=== PATIENT | male | born 1970 | race Caucasian/White ===

== ENCOUNTER → 2016-10-15 | Outpatient (CLI) | payer OTHER ==
[~2016-10-15] MED LIST: CELEXA10 MG PO; COREG3.125 MG PO; LISINOPRIL10 MG PO; MAG-OX 400400 MG PO; MAGNESIUM OXIDE PO; MULTIPLE VITAMI1 CAP PO; VICODIN 5/500 505 MG PO; ZANTAC 150150 MG PO
[2016-10-15 15:29] LABS: BASO % 0.5 % (0.0-1.0); EOS # 0.4 10*3/uL (0.0-0.4); EOS % 5.2 % (1.0-4.0); HEMATOCRIT 43.3 % (42.0-52.0); HEMOGLOBIN 14.8 g/dl (14.0-18.0); LYMPH # 1.5 10*3/uL (1.3-4.4); MEAN CELL VOLUME 91.5 fl (80.0-94.0); MEAN CORPUSCULAR HGB 31.3 pg (27.0-31.0); MEAN CORPUSCULAR HGB CONC 34.2 g/dl (33.0-37.0); MEAN PLATELET VOLUME 11.6 fl (9.6-12.3); MONO # 0.8 10*3/uL (0.1-1.0); MONO % 10.4 % (3.0-9.0); NEUT # 4.6 10*3/uL (2.3-7.9); NEUT % 62.5 % (47.0-73.0); PLATELET COUNT AUTOMATED 177 10*3/uL (130-400); RED BLOOD COUNT 4.73 10*6/uL (4.50-5.90); RED CELL DISTRI WIDTH 12.6 % (0-14.5); WHITE BLOOD COUNT 7.3 10*3/uL (4.8-10.8)
[2016-10-15 15:59] LABS: BUN 16 mg/dl (7-24); CARBON DIOXIDE 25 mmol/L (21-32); CHLORIDE 107 mmol/L (98-107); CHOLESTEROL 159 mg/dL (<200); EST GLOM FILT AFRICAN AMERICAN > 60 ml/min; GLUCOSE 95 mg/dL (65-99); HDL CHOLESTEROL 49 mg/dl (40-60); LDL CHOLESTEROL 74 mg/dL (9-159); POTASSIUM 4.3 mmol/L (3.5-5.1); SODIUM 139 mmol/L (136-145); TRIGLYCERIDES 180 mg/dl (<150); VLDL CHOLESTEROL 36 mg/dL (6-40)
== END | disposition home or self-care (01) ==
LOC: LAB 14:12
PROVIDERS: Family Medicine
DX: I10 Essential (primary) hypertension (principal)

== ENCOUNTER → 2016-11-15 | Outpatient (CLI) | payer OTHER | END | disposition home or self-care (01) | LOC: LAB 11:26 | DX: R19.5 Other fecal abnormalities (principal) ==

== ENCOUNTER 2018-03-01 15:35 | Inpatient (IN) | payer OTHER ==
[~2018-03-01] VITALS: Ht 182.9 cm; Wt 106.6 kg
[2018-03-01] VITALS (10 sets, daily range): BP systolic 116–130; BP diastolic 61–80
--- NOTE | ~2018-03-01 | O ---
[place], [place] OPERATIVE NOTE NAME: CHERRY DRAKE UNIT #: [id number] ROOM: [facility]- DOCTOR: HOA MELÉNDEZ MD BIRTHDATE: [birth year] DOS: 03/02/2018 INDICATIONS: The patient has presented with profound anemia, hemoglobin of 6, hematocrit 21. The patient is telling me he is not on any blood thinners. He has been on aspirin, according to the until last month. He is on the other hand on esomeprazole. He is complaining of noticing blood in his stool. Status post 3 unit packed cell transfusion. PROCEDURE: Today's procedure part of investigation is colonoscopy and panendoscopy. PREMEDICATION: Propofol. SCOPE: Olympus forward-viewing gastroscope Q10 video. REPORT: After putting the patient in left lateral position and application of lubricant to the scope, the scope was introduced. Thereafter, under direct visualization, advanced through the length of esophagus without difficulty. Gastric pouch was entered. A few spots consistent with gastritis and gastric erosions, which appears to be secondary to aspirin insult was identified. Biopsies obtained. Photographic series obtained. Duodenal bulb, second and third part all inspected carefully. There was no angiodysplasia. There is no gross bleeding. Air was suctioned out after biopsy of the superficial erosions. The patient extubated, tolerated the procedure well. IMPRESSION: Gastritis, gastric erosion. PLAN: Continuation of Protonix 40 mg 1 every day. Furthermore, we are going to proceed with colonoscopy. PROCEDURE #2 INDICATIONS: The patient has presented with blood in the stool, undergone investigation. PROCEDURE: Today's procedure part of investigation is colonoscopy plus biopsy and photographic series. PREMEDICATION: Propofol. SCOPE: Olympus folding colonoscope 10L video. REPORT: After putting the patient in left lateral position and application of lubricant to the scope, the scope was introduced. Thereafter, under direct visualization, advanced through the length of colon without difficulty. Base of the cecum explored multiple superficial ulcerations at the base of cecum was photographed, biopsied and scope was withdrawn from ascending, transverse, descending colon, which is without any to the pathology of concern, removed to the level of rectum. GI reflection of the scope was performed, mild hemorrhoids was noticed, slightly agitated, this could be post colonic prep agitation; [place], [place] OPERATIVE NOTE NAME: CHERRY DRAKE UNIT #: [id number] ROOM: [facility]- DOCTOR: MEDHAT ECHEVERRIA,HOA BIRTHDATE: [birth year] however, 1+ hemorrhoids was documented. Air was suctioned out. The patient diverticulum was photographed, tolerated the procedure well. IMPRESSION: Cecal ulcers, superficial, status post multiple biopsy, diverticulosis, rare at sigmoid level, and small hemorrhoids. PLAN AND DISCUSSION: Anucort-HC suppository, this patient may need a capsule endoscopy to rule out no other source of pathology in the small bowel and clinical reassessment. This is going to be organized as outpatient. HOA MELÉNDEZ MD CM:OPRECORD:OPERATIVE NOTE [id number] 1622 HOA MELÉNDEZ MD 03/02/18 1619 interface
--- NOTE | ~2018-03-01 | EKG ---
[place], [place] ELECTROCARDIOGRAM REPORT NAME: GIL DRAKE UNIT #: [id number] ROOM: [facility] DOCTOR: SILVESTRE DRAFT REPORT BIRTHDATE: [birth year] [facility] Test Date: 2018-03-01 Test Time: 16:14:17 Pat Name: GIL DRAKE Department: Room: [facility] Gender: M Steam Roller Operator: : 1970 Requested By: JERRY MENDOSA PA-C Order Number: [id number] Reading MD: Gil Sosa MD Measurements Intervals Innis Rate: 61 P: 56 KS: 250 QRS: 31 QRSD: 103 T: -47 QT: 693 QTc: 699 Interpretive Statements Sinus rhythm Frequent PVCs Prolonged KS interval Inferior infarct, age indeterminate No previous ECG available for comparison Electronically Signed On 03-01-2018 18:39:35 PST by Gil Sosa MD CM:EKGRPT:ELECTROCARDIOGRAM REPORT 1614 1839 JERRY MENDOSA PA-C EPIPHANY DRAFT REPORT JERRY MENDOSA PA-C
--- NOTE | ~2018-03-01 | PROC NOTE ---
[place], [place] PROCEDURE NOTE NAME: CHERRY DRAKE UNIT #: [id number] ROOM: 406 DOCTOR: GLENROY DIAL MD BIRTHDATE: [birth year] DOS: 03/05/2018 PREOPERATIVE DIAGNOSIS: Bleeding internal hemorrhoids. POSTOPERATIVE DIAGNOSIS: Bleeding internal hemorrhoids (grade 2). PROCEDURE: Doppler guided hemorrhoidal artery ligation. SURGEON: Glenroy Dial MD HOME SERVICE DIRECTOR: LANDEN. ANESTHESIA: LMA. INDICATIONS: This is a 48-year-old gentleman with a history of bleeding internal hemorrhoids and anemia who is here for the above-mentioned procedure. The procedure and its complications were explained to the patient in detail preoperatively. Complications that were discussed included but were not limited to, bleeding, recurrence, prolonged pain, and damage to lying vital structures. He agreed to proceed. DESCRIPTION OF PROCEDURE: After identifying the patient, the patient was brought to the operating suite and laid in the supine position. After induction of general anesthesia, he was placed in the lithotomy position and in head down in a Trendelenburg fashion as well and the parts were painted and draped in the usual sterile fashion. This was done after a time-out procedure was called and IV sedation was administered and the patient was intubated. A digital rectal exam was performed, which was within normal limits. There was no bleeding that could be encountered on the examining finger. Serial ligation was performed of the hemorrhoidal arteries with the help of a Doppler probe at 7, 9, 11, 1, 3, and 5 o'clock positions with the help of 0 Vicryl in an interrupted fashion. Thereafter, a rectal exam was performed again and there was no evidence of any thrombosed internal hemorrhoids. Local anesthesia was infiltrated in the perianal fashion and the patient was placed back in a supine position. He was extubated uneventfully and brought back to the recovery room in stable fashion. There were no complications. Dr. Glenroy Dial, the attending surgeon, was present throughout the operating case. [place], [place] PROCEDURE NOTE NAME: CHERRY DRAKE UNIT #: [id number] ROOM: 406 DOCTOR: GLENROY DIAL MD BIRTHDATE: [birth year] Glenroy Dial MD CM:LM:PROCEDURE NOTE 1203 1219 GLENROY DIAL MD
--- NOTE | ~2018-03-01 | CON ---
[place], [place] REPORT OF CONSULTATION NAME: CHERRY DRAKE UNIT #: [id number] ROOM: [facility] DOCTOR: HOA MELÉNDEZ MD BIRTHDATE: [birth year] DOS: GASGTROENDOSCOPIC REPORT: HISTORY OF PRESENT ILLNESS: This is a 48-year-old patient who was presented with chief complaint of GI bleed and profound anemia of H and H of 6 and 21, status post 3 units packed transfusion. Chest x-ray was unremarkable. Blood work was GFR greater than 60. Chemistry normal. Magnesium normal. Lipase normal. INR 1.1. CT scan of the abdomen and pelvis has been done, no acute process. Account for the patient bleeding. Colonoscopy was recommended that is organized. CT scan of the head was unremarkable. Troponin was negative. PAST MEDICAL HISTORY: Associated with hypertension, syncope, gastroesophageal reflux, GI bleed, depression. PAST SURGICAL HISTORY: Cardiac catheterization, appendectomy, cervical spine surgery. SOCIAL HISTORY: Nonsmoker, nonalcohol consumer. FAMILY HISTORY: Noncontributory. ALLERGIES: No known medications. MEDICATIONS: Medication list has been reviewed. He has stopped intake of aspirin a month ago according to the . Otherwise, he is on omeprazole and ranitidine. REVIEW OF SYSTEMS: HEENT: Denies double vision, blurred vision. RESPIRATORY: Denies acute shortness of breath. CARDIOVASCULAR: Denies acute chest pain. DIGESTIVE SYSTEM: No hematemesis; however, blood in the stool. PHYSICAL EXAMINATION: VITAL SIGNS: Stable. HEENT: Within normal limit. NECK: Supple, no thyromegaly. CHEST: Symmetric anatomy, equal expansion. HEART: Normal sinus rhythm, no gallop, no murmur. ABDOMEN: Soft. No hepato-organomegaly. Bowel sounds present. No pulsatile mass. EXTREMITIES: No cyanosis, no pedal edema. NEUROLOGIC: Alert, oriented to time, place, person. IMPRESSION: Gastrointestinal bleed, source unknown profound anemia, status post transfusion. PLAN AND DISCUSSION: EGD and colonoscopy today. [place], [place] REPORT OF CONSULTATION NAME: CHERRY DRAKE UNIT #: [id number] ROOM: [facility] DOCTOR: HOA MELÉNDEZ MD BIRTHDATE: [birth year] HOA MELÉNDEZ MD CM:CONSTR:REPORT OF CONSULTATION 1541 03/03/18 0520 interface
--- NOTE | 2018-03-01 16:10 | NUR ---
PT PROVIDED WITH URINAL AND IS AWARE WE NEED URINE SAMPLE
--- NOTE | 2018-03-01 16:26 | NUR ---
PT SIGNED CONSCENT FOR BLOOD TRANSFUSION IF NEEDED
[2018-03-01 16:39] LABS: BASO % 0.7 % (0.0-1.0); EOS # 0.2 10*3/uL (0.0-0.4); EOS % 3.9 % (1.0-4.0); HEMATOCRIT 21.7 % (42.0-52.0); HEMOGLOBIN 6.1 g/dl (14.0-18.0); LYMPH # 1.3 10*3/uL (1.3-4.4); LYMPH % 21.7 % (27.0-41.0); MEAN CELL VOLUME 87.1 fl (80.0-94.0); MEAN CORPUSCULAR HGB 24.5 pg (27.0-31.0); MEAN CORPUSCULAR HGB CONC 28.1 g/dl (33.0-37.0); MEAN PLATELET VOLUME 10.6 fl (9.6-12.3); MONO # 0.6 10*3/uL (0.1-1.0); MONO % 10.7 % (3.0-9.0); NEUT # 3.7 10*3/uL (2.3-7.9); NEUT % 62.3 % (47.0-73.0); NUCLEATED RED BLOOD CELL 0.3 % (0.0-0.0); PLATELET COUNT AUTOMATED 246 10*3/uL (130-400); RED BLOOD COUNT 2.49 10*6/uL (4.50-5.90); RED CELL DISTRI WIDTH 20.4 % (0-14.5); WHITE BLOOD COUNT 5.9 10*3/uL (4.8-10.8)
[2018-03-01 16:49] LABS: ACT PARTIAL THROMBO TIME 23.5 SECONDS (20.8-31.5); INTERNATIONAL NORM RATIO 1.1 (2.0-3.5)
[2018-03-01 16:57] LABS: ALBUMIN 3.3 gm/dl (3.1-4.5); ALKALINE PHOSPHATASE 60 U/L (45-117); BUN 16 mg/dl (7-24); CHLORIDE 106 mmol/L (98-107); LIPASE 92 U/L (73-393); POTASSIUM 4.5 mmol/L (3.5-5.1); SGOT/AST 21 IU/L (3-35); SGPT/ALT 30 U/L (12-78); SODIUM 139 mmol/L (136-145); TOTAL PROTEIN 6.4 gm/dL (6.4-8.2)
[2018-03-01 17:00] LABS: TROPONIN I < 0.015 ng/ml (<0.045)
[2018-03-01 17:14] LABS: BILIRUBIN NEGATIVE (NEGATIVE); BLOOD NEGATIVE (NEGATIVE); CLARITY CLEAR (CLEAR); COLOR YELLOW (YELLOW); GLUCOSE NEGATIVE (NEGATIVE); KETONE NEGATIVE (NEGATIVE); LEUKO ESTERASE NEGATIVE (NEGATIVE); NITRITE NEGATIVE (NEGATIVE); PH 5.5 (5.0-9.0); UROBILINOGEN 0.2 E.U./dl (0.2-1.0)
[2018-03-01 17:25] LABS: RBC 0-2 rbc/hpf (0-2); WBC 0-2 wbc/hpf (0-5)
--- NOTE | 2018-03-01 18:23 | NUR ---
PT DENIES ANY PAIN DENEIS ANY SOB VITALS WNL WILL MONITOR
--- NOTE | 2018-03-01 18:40 | NUR ---
A 48, admitted to ICCU, under the services of FRITZ Rice DO with a diagnosis of GI BLEED ANEMIA SYNCOPY. Chief complaint is PASSED OUT. Patient arrived via ambulance from ER. Monitor applied. Initial assessment completed. Vital signs taken and recorded. FRITZ RICE DO notified of admission to the unit. Orders received. See assessment for past medical history, medications and allergies. Patient and/or family oriented to unit. [facility] visitation policy reviewed. Clothing/patient valuable form completed. OZZY LAIRD
[2018-03-01] MEDS ORDERED: LAMICTAL100 MG PO (18:52)
[2018-03-01] MEDS ORDERED: PRILOSEC20 M1 PO (18:53)
[2018-03-01] MEDS ORDERED: PROZAC20 MG PO (18:53)
[2018-03-01] MEDS ORDERED: BISOPROLOL FM5 MG PO (18:54)
[2018-03-01] MEDS ORDERED: ZANTAC 150150 MG PO (18:55)
--- NOTE | 2018-03-01 21:06 | NUR ---
PATIENT STATED HE WAS TAKING AN ASPIRIN DAILY, BUT STOPPED TAKING OVER A MONTH AGO.
[2018-03-02] VITALS (11 sets, daily range): BP systolic 88–142; BP diastolic 40–76
[2018-03-02 06:07] LABS: ALBUMIN 3.2 gm/dl (3.1-4.5); BUN 13 mg/dl (7-24); CHLORIDE 107 mmol/L (98-107); CREATININE 0.89 mg/dL (0.70-1.30); PHOSPHOROUS 3.6 mg/dL (2.5-4.9); POTASSIUM 4.4 mmol/L (3.5-5.1); SGOT/AST 23 IU/L (3-35); SGPT/ALT 31 U/L (12-78); SODIUM 138 mmol/L (136-145)
[2018-03-02 06:14] LABS: ALKALINE PHOSPHATASE 60 U/L (45-117); FREE T4 0.78 ng/dl (0.76-1.46); TOTAL PROTEIN 6.2 gm/dL (6.4-8.2)
[2018-03-02 06:26] LABS: BASO % 0.7 % (0.0-1.0); EOS # 0.3 10*3/uL (0.0-0.4); LYMPH # 1.1 10*3/uL (1.3-4.4); LYMPH % 19.6 % (27.0-41.0); MEAN CELL VOLUME 87.3 fl (80.0-94.0); MEAN CORPUSCULAR HGB 25.7 pg (27.0-31.0); MEAN CORPUSCULAR HGB CONC 29.5 g/dl (33.0-37.0); MEAN PLATELET VOLUME 10.3 fl (9.6-12.3); MONO # 0.5 10*3/uL (0.1-1.0); MONO % 10.1 % (3.0-9.0); NEUT # 3.4 10*3/uL (2.3-7.9); PLATELET COUNT AUTOMATED 199 10*3/uL (130-400); RED BLOOD COUNT 3.46 10*6/uL (4.50-5.90); RED CELL DISTRI WIDTH 17.8 % (0-14.5); WHITE BLOOD COUNT 5.4 10*3/uL (4.8-10.8)
[2018-03-02 06:31] LABS: HEMOGLOBIN 8.9 g/dl (14.0-18.0)
[2018-03-02 06:32] LABS: HEMATOCRIT 30.2 % (42.0-52.0)
[2018-03-02 06:33] LABS: ACT PARTIAL THROMBO TIME 23.3 SECONDS (20.8-31.5); INTERNATIONAL NORM RATIO 1.1 (2.0-3.5)
--- NOTE | 2018-03-02 09:00 | NUR ---
Courseware Developer in to see patient. Dr. Trejo is currently in the room. Will follow up at a later time.
[2018-03-02 09:36] LABS: VITAMIN D, 25-HYDROXY 27.8 ng/mL (30-100)
--- NOTE | 2018-03-02 11:06 | NUR ---
Angle Furnaceman in to see patient. He is resting with his eyes closed. Resps even and unlabored. Will follow up at a late time.
--- NOTE | 2018-03-02 14:20 | NUR ---
Trim Operator in to see patient. He is currently being taken to surgery. Will follow up at a later time.
--- NOTE | 2018-03-02 14:23 | NUR ---
TAKEN TO OR VIA BED.
--- NOTE | 2018-03-02 16:48 | NUR ---
RETURNED FROM OR VIA BED VERY STABLE. REPORT RECIEVED FROM DORIS.
[2018-03-02 17:08] LABS: BASO % 0.4 % (0.0-1.0); EOS # 0.2 10*3/uL (0.0-0.4); EOS % 4.7 % (1.0-4.0); HEMATOCRIT 30.4 % (42.0-52.0); HEMOGLOBIN 9.1 g/dl (14.0-18.0); LYMPH # 0.9 10*3/uL (1.3-4.4); LYMPH % 19.1 % (27.0-41.0); MEAN CELL VOLUME 87.1 fl (80.0-94.0); MEAN CORPUSCULAR HGB 26.1 pg (27.0-31.0); MEAN CORPUSCULAR HGB CONC 29.9 g/dl (33.0-37.0); MEAN PLATELET VOLUME 10.3 fl (9.6-12.3); MONO # 0.5 10*3/uL (0.1-1.0); MONO % 9.3 % (3.0-9.0); NEUT # 3.3 10*3/uL (2.3-7.9); NEUT % 66.1 % (47.0-73.0); PLATELET COUNT AUTOMATED 202 10*3/uL (130-400); RED BLOOD COUNT 3.49 10*6/uL (4.50-5.90); RED CELL DISTRI WIDTH 18.1 % (0-14.5); WHITE BLOOD COUNT 4.9 10*3/uL (4.8-10.8)
--- NOTE | 2018-03-02 19:30 | NUR ---
PATIENT AND HAD MANY QUESTIONS CONCERNING TREATMENT. I EXPLAINED TO THEM WHAT DR. MELÉNDEZ'S NOTE SAID, THE MEDICATIONS HE WAS GETTING. THEY WERENT HAPPY WITH THAT, STATED "IS THIS SAME THING GONNA HAPPEN AGAIN NEXT YEAR?" "WHAT ARE THEY DOING TO KEEP THIS FROM HAPPENING?"THEN THEY WANTED TO SPEAK WITH AN INHOUSE DOCTOR. I CALLED AND SPOKE WITH DR. CHAN, AND DR. PINTO CAME UP TO SPEAK WITH THEM.
[2018-03-03] VITALS: BP 112/70
[2018-03-03 04:00] VITALS: BP 114/72
[2018-03-03 07:09] LABS: BASO % 0.6 % (0.0-1.0); EOS # 0.3 10*3/uL (0.0-0.4); HEMATOCRIT 30.4 % (42.0-52.0); HEMOGLOBIN 8.7 g/dl (14.0-18.0); LYMPH % 20.5 % (27.0-41.0); MEAN CELL VOLUME 87.9 fl (80.0-94.0); MEAN CORPUSCULAR HGB 25.1 pg (27.0-31.0); MEAN CORPUSCULAR HGB CONC 28.6 g/dl (33.0-37.0); MEAN PLATELET VOLUME 10.9 fl (9.6-12.3); MONO # 0.6 10*3/uL (0.1-1.0); NEUT # 3.1 10*3/uL (2.3-7.9); NEUT % 61.5 % (47.0-73.0); PLATELET COUNT AUTOMATED 194 10*3/uL (130-400); RED BLOOD COUNT 3.46 10*6/uL (4.50-5.90); RED CELL DISTRI WIDTH 18.2 % (0-14.5)
[2018-03-03 07:41] LABS: ALBUMIN 2.9 gm/dl (3.1-4.5); ALKALINE PHOSPHATASE 59 U/L (45-117); BUN 9 mg/dl (7-24); CHLORIDE 112 mmol/L (98-107); CREATININE 0.89 mg/dL (0.70-1.30); PHOSPHOROUS 3.1 mg/dL (2.5-4.9); POTASSIUM 4.8 mmol/L (3.5-5.1); SGOT/AST 15 IU/L (3-35); SGPT/ALT 28 U/L (12-78); SODIUM 140 mmol/L (136-145); TOTAL PROTEIN 5.9 gm/dL (6.4-8.2)
[2018-03-03 08:00] VITALS: BP 112/78
--- NOTE | 2018-03-03 08:36 | NUR ---
DR CABELLO IN TO SEE PT.
--- NOTE | 2018-03-03 09:40 | NUR ---
DR SIMS IN TO SEE PT. UPDATED HIM ON PT'S CONDITION AND PLAN OF CARE. NEW ORDERS RECEIVED.
--- NOTE | 2018-03-03 11:02 | NUR ---
ANUSOL SUPPOSITORY GIVEN PER PRN ORDER.
[2018-03-03 12:00] VITALS: BP 115/57
--- NOTE | 2018-03-03 13:31 | NUR ---
PT RESTING. RESP EASY. NO ACUTE DISTRESS NOTED A TTHIS TIME. WILL CONTINUE TO MONITOR PT.
--- NOTE | 2018-03-03 14:08 | NUR ---
PT TRANSFERED TO [facility]. [facility] GAIT [facility]AD[facility]. PT DENIES C/O DIZZINESS OR LIGHTHEADEDNESS.
--- NOTE | 2018-03-03 15:30 | NUR ---
ASSUMED CARE OF PATIENT. PT RESTING IN BED. NO COMPLAINTS OR NEEDS AT THIS TIME. CALL LIGHT IN REACH.
[2018-03-03 16:00] VITALS: BP 109/95
[2018-03-03 20:00] VITALS: BP 127/79
--- NOTE | 2018-03-03 20:00 | NUR ---
AAOX3 RESTING IN BED. SKIN WARM & DRY. HEP LOCK INTACT TO LEFT ANTECUBITAL; SITE ASYMPTOMATIC. PULSE OX 98% ON ROOM AIR. PT. VOICES NO C/O AT THIS TIME. CALL LIGHT WITHIN REACH.
[2018-03-04] VITALS: BP 137/69
[2018-03-04 05:58] LABS: BASO % 0.7 % (0.0-1.0); EOS # 0.3 10*3/uL (0.0-0.4); EOS % 5.4 % (1.0-4.0); HEMATOCRIT 31.9 % (42.0-52.0); HEMOGLOBIN 9.4 g/dl (14.0-18.0); LYMPH # 1.3 10*3/uL (1.3-4.4); MEAN CELL VOLUME 88.1 fl (80.0-94.0); MEAN CORPUSCULAR HGB CONC 29.5 g/dl (33.0-37.0); MEAN PLATELET VOLUME 10.7 fl (9.6-12.3); MONO # 0.8 10*3/uL (0.1-1.0); MONO % 14.1 % (3.0-9.0); NEUT % 55.4 % (47.0-73.0); PLATELET COUNT AUTOMATED 217 10*3/uL (130-400); RED BLOOD COUNT 3.62 10*6/uL (4.50-5.90); RED CELL DISTRI WIDTH 17.7 % (0-14.5); WHITE BLOOD COUNT 5.4 10*3/uL (4.8-10.8)
--- NOTE | 2018-03-04 06:00 | NUR ---
AROUSES EASILY UPON ENTERING ROOM. MEDICATION GIVEN PER EMAR. PT. VOICES NO C/O AT THIS TIME. CALL LIGHT WITHIN REACH.
[2018-03-04 06:30] LABS: BUN 11 mg/dl (7-24); CHLORIDE 107 mmol/L (98-107); CREATININE 1.03 mg/dL (0.70-1.30); POTASSIUM 4.4 mmol/L (3.5-5.1); SODIUM 140 mmol/L (136-145)
--- NOTE | 2018-03-04 06:50 | NUR ---
NOTIFIED DR. SNYDER OF PT. HAVING PVC'S.
--- NOTE | 2018-03-04 07:15 | NUR ---
IN TO SEE PATIENT.
[2018-03-04 08:00] VITALS: BP 110/78
--- NOTE | 2018-03-04 08:00 | NUR ---
PATIENT RESTING QUIETLY IN BED. RESPIRATIONS EASY, REGULAR ON RA. DENIES ANY SOB. DENIES ANY PAIN/DISCOMFORT AT THIS TIME. WILL CONTINUE TO MONITOR. CALL LIGHT WITHIN REACH. SEE SHIFT ASSESSMENT. VSS.
[2018-03-04 12:00] VITALS: BP 118/69; BP 148/66
[2018-03-04 16:00] VITALS: BP 120/56
--- NOTE | 2018-03-04 17:01 | NUR ---
Patient resting quietly with no c/o discomfort. Respirations easy and regular. Vital signs stable. No overt distress. EUGENIA THOMSON
--- NOTE | 2018-03-04 17:20 | NUR ---
PHYSICAL THERAPY PATIENT SEEN IN ROOM BY PT OR SCREEN AND FOUND TO BE UP AD KARON WITH NO AD IN ROOM WITH GOOD SAFETY AND NO PT NEEDS INDICATED. THANK YOU FOR REFERRAL SIOBHAN SORIANO PT
--- NOTE | 2018-03-04 19:00 | NUR ---
PT SITTING UP IN BED WATCHING TV DURING BEDSIDE SHIFT REPORT. NO C/O VOICED. CALL LIGHT IN REACH.
[2018-03-04 20:00] VITALS: BP 129/66
[2018-03-05] VITALS (13 sets, daily range): BP systolic 93–121; BP diastolic 48–79
--- NOTE | 2018-03-05 02:05 | NUR ---
24 HR chart check completed.
--- NOTE | 2018-03-05 02:16 | NUR ---
Patient sleeping. Respirations relaxed and easy. Siderails up . Wheeljillians on. MAURICE STILES
[2018-03-05 06:41] LABS: BASO % 0.7 % (0.0-1.0); EOS # 0.3 10*3/uL (0.0-0.4); EOS % 5.4 % (1.0-4.0); HEMATOCRIT 33.2 % (42.0-52.0); HEMOGLOBIN 9.7 g/dl (14.0-18.0); LYMPH # 1.4 10*3/uL (1.3-4.4); LYMPH % 24.9 % (27.0-41.0); MEAN CELL VOLUME 87.8 fl (80.0-94.0); MEAN CORPUSCULAR HGB 25.7 pg (27.0-31.0); MEAN CORPUSCULAR HGB CONC 29.2 g/dl (33.0-37.0); MEAN PLATELET VOLUME 11.3 fl (9.6-12.3); MONO # 0.7 10*3/uL (0.1-1.0); MONO % 11.4 % (3.0-9.0); NEUT # 3.3 10*3/uL (2.3-7.9); NEUT % 57.2 % (47.0-73.0); PLATELET COUNT AUTOMATED 224 10*3/uL (130-400); RED BLOOD COUNT 3.78 10*6/uL (4.50-5.90); RED CELL DISTRI WIDTH 17.3 % (0-14.5); WHITE BLOOD COUNT 5.7 10*3/uL (4.8-10.8)
[2018-03-05 07:01] LABS: BUN 12 mg/dl (7-24); CHLORIDE 107 mmol/L (98-107); CREATININE 1.06 mg/dL (0.70-1.30); SODIUM 139 mmol/L (136-145)
--- NOTE | 2018-03-05 10:40 | NUR ---
Tile Roofer in to see patient. He is currently not in his room. Will follow up at a later time.
--- NOTE | 2018-03-05 10:53 | NUR ---
PT OFF FLOOR TO SURGERY.
--- NOTE | 2018-03-05 12:41 | NUR ---
Hadoop Architect in to see patient. He is currently no in his room. Will follow up at a later time.
--- NOTE | 2018-03-05 14:20 | NUR ---
PT MEDICATED WITH PRN NORCO FOR C/O RECTAL PAIN AFTER SURGERY, PT RATES PAIN 10/10. WILL REACCESS.
--- NOTE | 2018-03-05 15:25 | NUR ---
Casino Banker in to talk to patient. Patient states lives at home with his . There are 0 steps in the home. Physician: Adarsh Hargrove [facility]acy: [facility] Home health services: none Patient's level of ADLs: INDEPENDENT Patient has working utilities: yes DME: none Follow-up physician's appointment after d/c: will be made by the hospitalist nurse director upon discharge Does patient want to access PORTAL?: no Discharge plan discussed with patient and his bed who is at the bedside. He lives at home with his . He is independent in his ADLs and ambulation. Discussed home health care services and he denies any home needs at this time. When medically stable he will be discharged to home. JUAN FINLEY
--- NOTE | 2018-03-05 20:15 | NUR ---
PT AWAKE. PT STATES HE IS HAVING PAIN FROM PRIOR PROCEDURE. PT ADMINISTERED PRN NORCO. CALL LIGHT WITHIN REACH. WILL CONTINUE TO MONITOR.
[2018-03-06] VITALS: BP 115/64
[2018-03-06 08:00] VITALS: BP 121/76
--- NOTE | 2018-03-06 08:10 | NUR ---
REQUESTED AND GIVEN MORPHINE FOR C/O RECTAL PAIN PT RATES PAIN 10/10 WILL MONITOR
--- NOTE | 2018-03-06 09:00 | NUR ---
Wireworker in to see patient. No new needs or request at this time. He denies any home needs. When medically stable he will be discharged to home.
--- NOTE | 2018-03-06 11:31 | NUR ---
PT RESTING IN BED EYES CLSOED. MORPHINE APPEARS EFFECTIVE. WILL MONITOR
[2018-03-06 12:00] VITALS: BP 110/66
[2018-03-06 16:00] VITALS: BP 116/51
[2018-03-06 20:00] VITALS: BP 139/82
--- NOTE | 2018-03-06 20:38 | NUR ---
PT AWAKE AND RESTING IN BED. HE STATES THAT HE IS READY TO GO HOME BUT THAT HE IS STILL HAVING SOME PAIN AND IS UNABLE TO HAVE A BM. CALL LIGHT WITHIN REACH.
--- NOTE | 2018-03-06 20:48 | NUR ---
PT REQUESTED PAIN MEDICATION. PRN MORPHINE ADMINISTERED. WILL CONTINUE TO MONITOR.
--- NOTE | 2018-03-06 21:30 | NUR ---
PT STATES THAT PRN MORPHINE WAS SOMEWHAT EFFECTIVE BUT THAT HE WAS STILL EXPERIENCING MILD PAIN. WILL CONTINUE TO MONITOR.
[2018-03-07] VITALS: BP 110/57
--- NOTE | 2018-03-07 04:09 | NUR ---
PT MEDICATED W/MORPHINE 2MG IVP FOR C/O RECTAL PAIN 12/06. PT STATES HE HAS NOT HAD A BM X4 DAYS. WILL ADMINISTER DULCOLAX IN AM.
[2018-03-07 07:10] LABS: BASO % 0.4 % (0.0-1.0); EOS # 0.2 10*3/uL (0.0-0.4); EOS % 2.7 % (1.0-4.0); LYMPH # 1.1 10*3/uL (1.3-4.4); LYMPH % 14.2 % (27.0-41.0); MEAN CELL VOLUME 85.9 fl (80.0-94.0); MEAN CORPUSCULAR HGB 24.9 pg (27.0-31.0); MEAN PLATELET VOLUME 11.6 fl (9.6-12.3); MONO # 0.8 10*3/uL (0.1-1.0); NEUT # 5.6 10*3/uL (2.3-7.9); NEUT % 72.4 % (47.0-73.0); PLATELET COUNT AUTOMATED 224 10*3/uL (130-400); RED BLOOD COUNT 3.61 10*6/uL (4.50-5.90); RED CELL DISTRI WIDTH 17.4 % (0-14.5); WHITE BLOOD COUNT 7.7 10*3/uL (4.8-10.8)
[2018-03-07 07:43] LABS: CHLORIDE 106 mmol/L (98-107); POTASSIUM 4.2 mmol/L (3.5-5.1); SODIUM 140 mmol/L (136-145)
[2018-03-07 07:47] LABS: BUN 11 mg/dl (7-24); CREATININE 0.91 mg/dL (0.70-1.30)
[2018-03-07 08:05] VITALS: BP 122/76
--- NOTE | 2018-03-07 08:15 | NUR ---
PATIENT MEDICATED FOR PAIN SEE EMAR. ALSO MEDICATED FOR CONSTIPATION. WILL CONTINUE TO MONITOR PATIENT. ROBB GARCIA [facility].
--- NOTE | 2018-03-07 08:28 | NUR ---
PATIENT AWAKE AND ORIENTED. C/O PAIN IN LOWER BACK REGION THAT RADIATES INTO THE BUTTOCKS. PAIN FEELS MORE LIKE PRESSURE PER THE PATIENT. STILL HAVENT HAD A BOWEL MOVEMENT OF THIS MORNING. ROBB GARCIA [facility]
--- NOTE | 2018-03-07 09:00 | NUR ---
Medical Reception Specialist in to see patient. No new needs or request at this time. He denies any home needs. When medically stable he will be discharged to home.
--- NOTE | 2018-03-07 09:42 | NUR ---
CALLED REGARDING PATIENT'S REQUEST FOR AN ENEMA. NEW ORDERS RECEIVED.
--- NOTE | 2018-03-07 10:28 | NUR ---
PATIENT HAD LARGE BM, LIQUID FORM. MEDICATION WAS SUCCESSFUL. ROBB CUMMINGSN.RCC
--- NOTE | 2018-03-07 10:29 | NUR ---
PATIENT TOLERATED MEDICATIONS WELL. PT STATES THAT "PAIN IN THE LOWER BACK REGION IS RELIEVED AFTER HAVING A BM." ROBB CUMMINGSN.RCC
[2018-03-07 12:00] VITALS: BP 106/50
--- NOTE | 2018-03-07 12:11 | NUR ---
IV SITE OUTDATED, NOT RESTARTED DUE TO POSSIBLE DISCHARGE ROBB GARCIA [facility]
--- NOTE | 2018-03-07 12:26 | NUR ---
C/O RECTAL PAIN, RATED 4 OUT OF 10. GAVE PRN MEDICATION TO HELP. JOSE BRUCE.RCC
[2018-03-07] MEDS ORDERED: HYDROCODONE-AC1 EAC1 PO (13:04)
[2018-03-07] MEDS ORDERED: VITAMIN D5000 UNI1 PO (13:04)
--- NOTE | 2018-03-07 13:06 | NUR ---
PRN PAIN MEDICATION WAS EFFECTIVE. PATIENT STATES PAIN LEVEL AT A 1 ON A SCALE OF 1-10. ROBB MACKENZIE.RCC
--- NOTE | 2018-03-07 14:52 | NUR ---
Discharge instructions reviewed with patient/family. Patient receptive and verbalizes understanding. Follow-up care arranged. Written instructions given to patient/family. EUGENIA THOMSON.
== END 2018-03-07 20:19 | disposition home or self-care (01) | DRG 347 ==
LOC: ED 15:35 → 4E 17:33 → EDHOLD 17:33 → ICCU 17:33 → 4E 03-03 14:09
PROVIDERS: Internal Medicine; Physician Assistant; ADMIT Internal Medicine
DX: K63.3 Ulcer of intestine (principal); K57.31 Diverticulosis of large intestine without perforation or abscess with bleeding; K29.71 Gastritis, unspecified, with bleeding; D62 Acute posthemorrhagic anemia; I42.9 Cardiomyopathy, unspecified; E44.0 Moderate protein-calorie malnutrition; I50.22 Chronic systolic (congestive) heart failure; K64.1 Second degree hemorrhoids; Z90.49 Acquired absence of other specified parts of digestive tract; I10 Essential (primary) hypertension; K21.9 Gastro-esophageal reflux disease without esophagitis; F32.9 Major depressive disorder, single episode, unspecified; E87.8 Other disorders of electrolyte and fluid balance, not elsewhere classified; R73.9 Hyperglycemia, unspecified; E83.41 Hypermagnesemia; E55.9 Vitamin D deficiency, unspecified; E66.9 Obesity, unspecified; G89.18 Other acute postprocedural pain; Z68.32 Body mass index [BMI] 32.0-32.9, adult

== ENCOUNTER → 2018-03-19 | Outpatient (CLI) | payer OTHER ==
[~2018-03-19] MED LIST changes: +BISOPROLOL FM5 MG PO; +HYDROCODONE-AC1 EAC1 PO; +LAMICTAL100 MG PO; +PRILOSEC20 M1 PO; +PROZAC20 MG PO; +VITAMIN D5000 UNI1 PO
[2018-03-19 15:57] LABS: HEMATOCRIT 33.4 % (42.0-52.0); HEMOGLOBIN 9.9 g/dl (14.0-18.0)
== END | disposition home or self-care (01) ==
LOC: LAB 15:03
PROVIDERS: Surgery
DX: D64.9 Anemia, unspecified (principal); K92.2 Gastrointestinal hemorrhage, unspecified; K64.9 Unspecified hemorrhoids

== ENCOUNTER → 2018-11-26 | Outpatient (CLI) | payer OTHER ==
[~2018-11-26] MED LIST changes: +COZAAR25 M1 PO
--- NOTE | 2018-11-26 10:14 | NUR ---
INFORMED SIGNED CONSENT OBTAINED FOR LEXISCAN STRESS TEST WITH DR TOM. RESTING EKG NSR HR 60 BP 118/68. PULSE OX 98% LUNGS CLEAR. PT COMPLETED ONE MINUTE OF A LEXISCAN PROTOCOL WITH PT RECEIVING LEXISCAN 0.4MG IV OVER 10 SECONDS. NO ARRHYTHMIAS OR ST CHANGES NOTED. PT C/O A H/A AND THROAT TIGHTNESS WITH INJECTION. LAST RECOVERY HR OF 75 BP 136/72. PT IN STABLE CONDITION. AWIATING NUCLEAR IMAGES.
== END | disposition home or self-care (01) ==
LOC: CARD 00:45
DX: R55 Syncope and collapse (principal); R53.81 Other malaise; I51.7 Cardiomegaly

== ENCOUNTER → 2019-04-11 | Outpatient (CLI) | payer OTHER | END | disposition home or self-care (01) | LOC: CT 04-01 10:00 | DX: K76.0 Fatty (change of) liver, not elsewhere classified (principal); K43.9 Ventral hernia without obstruction or gangrene ==

== ENCOUNTER → 2019-05-09 | Outpatient (CLI) | payer OTHER ==
[2019-05-09 19:14] LABS: BASO % 0.6 % (0.0-1.0); EOS # 0.2 10*3/uL (0.0-0.4); HEMATOCRIT 41.5 % (42.0-52.0); HEMOGLOBIN 13.2 g/dl (14.0-18.0); LYMPH # 1.7 10*3/uL (1.3-4.4); LYMPH % 27.3 % (27.0-41.0); MEAN CELL VOLUME 89.6 fl (80.0-94.0); MEAN CORPUSCULAR HGB 28.5 pg (27.0-31.0); MEAN CORPUSCULAR HGB CONC 31.8 g/dl (33.0-37.0); MEAN PLATELET VOLUME 10.9 fl (9.6-12.3); MONO # 0.7 10*3/uL (0.1-1.0); MONO % 10.7 % (3.0-9.0); NEUT # 3.7 10*3/uL (2.3-7.9); NEUT % 57.9 % (47.0-73.0); PLATELET COUNT AUTOMATED 219 10*3/uL (130-400); RED BLOOD COUNT 4.63 10*6/uL (4.50-5.90); WHITE BLOOD COUNT 6.4 10*3/uL (4.8-10.8)
[2019-05-09 19:40] LABS: IRON 71 ug/dL (65-175); TOTAL IRON BINDING CAPACITY 386 ug/dl (250-450)
== END | disposition home or self-care (01) ==
LOC: LAB 18:38
PROVIDERS: Nurse Practitioner Primary Care
DX: K62.5 Hemorrhage of anus and rectum (principal)

== ENCOUNTER → 2021-01-16 | Outpatient (CLI) | payer OTHER ==
[2021-01-16 08:25] LABS: BASO % 0.5 % (0.0-1.0); EOS # 0.2 10*3/uL (0.0-0.4); EOS % 3.7 % (1.0-4.0); HEMATOCRIT 43.9 % (42.0-52.0); LYMPH # 1.5 10*3/uL (1.3-4.4); LYMPH % 24.9 % (27.0-41.0); MEAN CELL VOLUME 91.8 fl (80.0-94.0); MEAN CORPUSCULAR HGB 29.5 pg (27.0-31.0); MEAN CORPUSCULAR HGB CONC 32.1 g/dl (33.0-37.0); MEAN PLATELET VOLUME 10.5 fl (9.6-12.3); MONO # 0.7 10*3/uL (0.1-1.0); MONO % 11.4 % (3.0-9.0); NEUT # 3.5 10*3/uL (2.3-7.9); PLATELET COUNT AUTOMATED 215 10*3/uL (130-400); RED BLOOD COUNT 4.78 10*6/uL (4.50-5.90); RED CELL DISTRI WIDTH 13.9 % (0-14.5); WHITE BLOOD COUNT 5.9 10*3/uL (4.8-10.8)
[2021-01-16 08:42] LABS: ALBUMIN 3.2 gm/dl (3.1-4.5); BUN 13 mg/dl (7-24); CHLORIDE 106 mmol/L (98-107); CHOLESTEROL 154 mg/dL (<200); CREATININE 1.08 mg/dL (0.70-1.30); POTASSIUM 4.4 mmol/L (3.5-5.1); SGOT/AST 25 IU/L (3-35); SGPT/ALT 42 U/L (12-78); SODIUM 138 mmol/L (136-145); TOTAL PROTEIN 7.1 gm/dL (6.4-8.2); TRIGLYCERIDES 56 mg/dl (<150)
[2021-01-16 08:50] LABS: ALKALINE PHOSPHATASE 78 U/L (45-117); LDL CHOLESTEROL 87 mg/dL (9-159)
[2021-01-16 09:08] LABS: VITAMIN D, 25-HYDROXY 24.7 ng/mL (30-100)
[2021-01-19 04:06] LABS: TESTOSTERONE FREE, (DIRECT) 10.8 pg/mL (7.2-24.0)
== END | disposition home or self-care (01) ==
LOC: LAB 07:52
PROVIDERS: ATTEND Nurse Practitioner Primary Care
DX: Z12.5 Encounter for screening for malignant neoplasm of prostate (principal); I10 Essential (primary) hypertension; E55.9 Vitamin D deficiency, unspecified; N52.9 Male erectile dysfunction, unspecified; E53.8 Deficiency of other specified B group vitamins

== ENCOUNTER 2021-03-01 13:30 | Emergency (ER) | payer OTHER | END 2021-03-01 17:27 | disposition left against medical advice (07) | LOC: ED 13:30 | DX: Z53.21 Procedure and treatment not carried out due to patient leaving prior to being seen by health care provider (principal); Z20.822 Contact with and (suspected) exposure to COVID-19 ==

== ENCOUNTER → 2022-05-11 | Outpatient (CLI) | payer OTHER ==
[2022-05-11 14:58] LABS: HEMATOCRIT 40.1 % (42.0-52.0); MEAN CELL VOLUME 90.3 fl (80.0-94.0); MEAN CORPUSCULAR HGB 30.4 pg (27.0-31.0); MEAN CORPUSCULAR HGB CONC 33.7 g/dl (33.0-37.0); MEAN PLATELET VOLUME 10.3 fl (9.6-12.3); RED BLOOD COUNT 4.44 10*6/uL (4.50-5.90); RED CELL DISTRI WIDTH 13.5 % (0-14.5); WHITE BLOOD COUNT 6.2 10*3/uL (4.8-10.8)
[2022-05-11 15:16] LABS: ALKALINE PHOSPHATASE 75 U/L (46-116); BUN 17 mg/dl (9-23); CHLORIDE 105 mmol/L (98-107); CHOLESTEROL 154 mg/dL (<200); LDL CHOLESTEROL 88 mg/dL (9-159); POTASSIUM 4.2 mmol/L (3.4-5.1); SGPT/ALT 25 U/L (10-49); TOTAL PROTEIN 6.7 gm/dL (6.0-8.0); TRIGLYCERIDES 87 mg/dl (<150)
== END | disposition home or self-care (01) ==
LOC: LAB 14:42
PROVIDERS: ATTEND Physician Assistant
DX: Z12.5 Encounter for screening for malignant neoplasm of prostate (principal); K21.9 Gastro-esophageal reflux disease without esophagitis; I10 Essential (primary) hypertension; N52.9 Male erectile dysfunction, unspecified; F63.81 Intermittent explosive disorder; F32.9 Major depressive disorder, single episode, unspecified

== ENCOUNTER → 2022-06-07 | Outpatient (CLI) | payer OTHER | END | disposition home or self-care (01) | LOC: CARD 14:44 | PROVIDERS: ATTEND Internal Medicine Cardiovascular Disease | DX: I51.7 Cardiomegaly (principal); I42.9 Cardiomyopathy, unspecified; I50.9 Heart failure, unspecified ==

== ENCOUNTER → 2022-06-22 | Outpatient (CLI) | payer OTHER ==
[2022-06-22 16:02] LABS: HEMATOCRIT 40.8 % (42.0-52.0); MEAN CELL VOLUME 91.3 fl (80.0-94.0); MEAN CORPUSCULAR HGB 30.6 pg (27.0-31.0); MEAN CORPUSCULAR HGB CONC 33.6 g/dl (33.0-37.0); MEAN PLATELET VOLUME 10.4 fl (9.6-12.3); RED BLOOD COUNT 4.47 10*6/uL (4.50-5.90); WHITE BLOOD COUNT 7.1 10*3/uL (4.8-10.8)
== END | disposition home or self-care (01) ==
LOC: LAB 15:41
PROVIDERS: ATTEND Physician Assistant
DX: K62.5 Hemorrhage of anus and rectum (principal); N52.9 Male erectile dysfunction, unspecified; F32.9 Major depressive disorder, single episode, unspecified; K21.9 Gastro-esophageal reflux disease without esophagitis; F63.81 Intermittent explosive disorder; M43.22 Fusion of spine, cervical region